=== PATIENT | male | born 1940 | race Two or more races ===

== ENCOUNTER 2023-10-01 15:15 | Emergency (ER) | payer MEDICARE ==
[~2023-10-01] VITALS: Ht 182.9 cm; Wt 86.6 kg
[2023-10-01 18:05] VITALS: BP 160/63; PULSE 67; RESP 16; TEMP 98.6; O2SAT 99
== END 2023-10-01 18:09 | disposition home or self-care (01) ==
LOC: ER 15:16
DX: S01.01XA Laceration without foreign body of scalp, initial encounter (principal); S81.812A Laceration without foreign body, left lower leg, initial encounter; S50.312A Abrasion of left elbow, initial encounter; S46.911A Strain of unspecified muscle, fascia and tendon at shoulder and upper arm level, right arm, initial encounter; W22.8XXA Striking against or struck by other objects, initial encounter; Y93.89 Activity, other specified; Y92.89 Other specified places as the place of occurrence of the external cause; Y99.8 Other external cause status
CPT/HCPCS: 12001; 70450; 72125; 73030; 99284; J7030; A6446; A6449